=== PATIENT | male | born 1995 | race Caucasian/White ===

== ENCOUNTER 2017-05-07 02:40 | Emergency (ER) | payer SELFPAY ==
[~2017-05-07] VITALS: Ht 170.2 cm; Wt 77.0 kg
[2017-05-07 03:00] VITALS: BP 119/91
== END 2017-05-07 04:50 | disposition left against medical advice (07) ==
LOC: ER 02:40
DX: Z53.21 Procedure and treatment not carried out due to patient leaving prior to being seen by health care provider (principal); F12.10 Cannabis abuse, uncomplicated